=== PATIENT | male | born 1970 | race American Indian/Alaskan Native ===

== ENCOUNTER 2018-10-07 19:19 | Emergency (ER) | payer OTHER ==
--- NOTE | 2018-10-07 20:22 | Emergency Department Report ---
Blank Doc - Documentation Documentation: 48 y/o AAM with 2 week of intermittent gi bleed. No PMH.
[2018-10-07 20:56] LABS: Hematocrit 43.7 % (35.5-45.6); Hemoglobin 14.8 gm/dl (11.8-15.2); Mean Corpuscular HGB Conc 34 % (32-34); Mean Corpuscular Volume 82 fl (84-94); Platelet Count 224 K/mm3 (140-440); Red Blood Count 5.33 M/mm3 (3.65-5.03)
[2018-10-07 21:23] LABS: Alanine Aminotransferase 22 units/L (7-56); Albumin 3.9 g/dL (3.9-5); BUN/Creatinine Ratio 10; Blood Urea Nitrogen 9 mg/dL (9-20); Calcium 9.1 mg/dL (8.4-10.2); Hemolysis Index 11
[2018-10-07 22:07] LABS: RBC Morphology Normal; Total Cells Counted 100
[2018-10-07 23:54] VITALS: BP 146/95
--- NOTE | 2018-10-08 02:22 | Emergency Department Report ---
ED General Adult HPI - General Chief complaint: GI Bleed Stated complaint: BLOOD IN STOOL Time Seen by Provider: 10/08/18 00:37 Source: patient Mode of arrival: Ambulatory Limitations: No Limitations - History of Present Illness Initial comments: Pt is a 48 yo male who presents to the ED with c/o intermittent rectal bleeding that began two weeks ago. He states he has bright red blood when he wipes and some present in the toliet. He denies any melena or abd pain. The patient states he does strain to have a BM and sits on the toliet for about 30 minutes. He denies every having this previously. He has not tried any treatment. He states he last had a BM today. He has no PMHx and is not on any medications. He does smoke and drink. He has never had a colonoscopy or seen a GI doctor. He states his grandmother and grandfather had colon CA. Severity scale (0 -10): 2 - Related Data Previous Rx's Medication Instructions Recorded Last Taken Type Docusate Sodium [Colace] 100 mg PO BID #20 capsule 10/08/18 Unknown Rx Nitroglycerin [Rectiv] 0.5 gm RC BID #30 oint...g. 10/08/18 Unknown Rx Allergies Allergy/AdvReac Type Severity Reaction Status Date / Time No Known Allergies Allergy Unverified 10/07/18 19:24 ED Review of Systems ROS: Stated complaint: BLOOD IN STOOL Other details as noted in HPI Comment: All other systems reviewed and negative ED Past Medical Hx - Past Medical History Previous Medical History?: Yes Additional medical history: hemorrhoids - Surgical History Past Surgical History?: No - Social History Smoking Status: Never Smoker Substance Use Type: None - Medications Home Medications: Home Medications Medication Instructions Recorded Confirmed Last Taken Type Docusate Sodium [Colace] 100 mg PO BID #20 capsule 10/08/18 Unknown Rx Nitroglycerin [Rectiv] 0.5 gm RC BID #30 oint...g. 10/08/18 Unknown Rx ED Physical Exam - General Limitations: No Limitations General appearance: alert, in no apparent distress - Head Head exam: Present: atraumatic, normocephalic - Eye Eye exam: Present: normal appearance - ENT ENT exam: Present: mucous membranes moist - Respiratory Respiratory exam: Present: normal lung sounds bilaterally. Absent: respiratory distress, wheezes, rales, rhonchi, stridor, chest wall tenderness, accessory muscle use, decreased breath sounds, prolonged expiratory - Cardiovascular Cardiovascular Exam: Present: regular rate, normal rhythm, normal heart sounds. Absent: systolic murmur, diastolic murmur, rubs, gallop - GI/Abdominal GI/Abdominal exam: Present: soft, normal bowel sounds. Absent: distended, tenderness, guarding, rebound, rigid - Rectal Rectal exam: Present: normal rectal tone, heme (-) stool, other (Hieu RN present during examination, small anal fissure at the 12 oclock position, no external or internal hemorrhoids, brown stool on examination, no prostate hypertrophy) - Neurological Exam Neurological exam: Present: alert, oriented X3 - Psychiatric Psychiatric exam: Present: normal affect, normal mood - Skin Skin exam: Present: warm, dry, intact ED Course Vital Signs 10/07/18 10/07/18 10/07/18 19:27 20:16 23:51 Temperature 98.2 F 98.2 F 98.3 F Pulse Rate 76 79 65 Respiratory 18 18 16 Rate Blood Pressure 140/95 140/95 146/95 O2 Sat by Pulse 98 98 99 Oximetry ED Medical Decision Making - Lab Data Result diagrams: 10/07/18 20:24 10/07/18 20:24 - Medical Decision Making Pt is a 48 yo male who presents to the ED with c/o intermittent rectal bleeding that began two weeks ago. He states he has bright red blood when he wipes and some present in the toliet. He denies any melena or abd pain. The patient states he does strain to have a BM and sits on the toliet for about 30 minutes. He de nies every having this previously. He has not tried any treatment. He states he last had a BM today. He has no PMHx and is not on any medications. He does smoke and drink. He has never had a colonoscopy or seen a GI doctor. He states his grandmother and grandfather had colon CA. labs are WNL. VSS. Examination shows a small anal fissure at the 12 oclock position, no hemorrhoids. hemacult is negative. Will tx pt for anal fissure and give stool softener. Discussed increased water intake and fiber. WIll have pt see a GI doctor in the next 2-3 days given family hx and will most likely need a colonoscopy. Advised to also see PCP in the next 2-3 days. Return to the emergency room for any new or wor sening symptoms. Critical care attestation.: If time is entered above; I have spent that time in minutes in the direct care of this critically ill patient, excluding procedure time. ED Disposition Clinical Impression: Rectal bleed, Anal fissure Disposition: TO HOME OR SELFCARE Is pt being admited?: No Does the pt Need Aspirin: No Condition: Stable Instructions: Anal Fissure (ED), Rectal Bleeding (ED), High Fiber Diet (ED) Additional Instructions: Please follow up with [facility] in the next 2-3 days to discuss colonscopy. Please follow up with primary care doctor in the next 2-3 days. Use medication as prescribed. Return to the emergency room for any new or worsening symptoms. Prescriptions: Docusate Sodium [Colace] 100 mg PO BID #20 capsule Nitroglycerin [Rectiv] 0.5 gm RC BID #30 oint...g. Referrals: LUCIA ROBLEDO MD [Primary Care Provider] - 2-3 Days [facility] [Provider Group] - 2-3 Days Time of Disposition: 02:22 Print Language: CZECH
== END 2018-10-08 02:40 | disposition home or self-care (01) ==
LOC: ED 19:19
DX: K60.2 Anal fissure, unspecified (principal)
CPT/HCPCS: 36415; 80053; 85007; 85025

== ENCOUNTER 2020-10-28 20:09 | Emergency (ER) | payer OTHER ==
[2020-10-28 20:46] VITALS: BP 134/94
[2020-10-28 21:20] LABS: Basophils % (Auto) 0.8 % (0.0-1.8); Eosinophils # (Auto) 0.1 K/mm3 (0.0-0.4); Eosinophils % (Auto) 1.3 % (0.0-4.3); Hematocrit 45.8 % (35.5-45.6); Hemoglobin 15.6 gm/dl (11.8-15.2); Lymphocytes # (Auto) 2.9 K/mm3 (1.2-5.4); Lymphocytes % (Auto) 50.4 % (13.4-35.0); Mean Corpuscular HGB Conc 34 % (32-34); Mean Corpuscular Volume 82 fl (84-94); Monocytes # (Auto) 0.7 K/mm3 (0.0-0.8); Monocytes % (Auto) 11.6 % (0.0-7.3); Platelet Count 221 K/mm3 (140-440); Red Blood Count 5.58 M/mm3 (3.65-5.03); Red Cell Distribution Width 13.7 % (13.2-15.2)
[2020-10-28 21:42] LABS: Creatine Kinase MB 2.5 ng/mL (0.0-4.0)
[2020-10-28 21:44] LABS: Alanine Aminotransferase 28 units/L (7-56); Albumin 4.6 g/dL (3.9-5); BUN/Creatinine Ratio 14; Blood Urea Nitrogen 13 mg/dL (9-20); Calcium 9.4 mg/dL (8.4-10.2); Hemolysis Index 6
[2020-10-28] MEDS ORDERED: BUTALB/ACETAMINOPHEN/CAFFEINE TAB PO ONE (23:27)
[2020-10-28] MEDS ORDERED: MECLIZINE 25 MG TAB PO ONE (23:27)
[2020-10-28] MEDS ORDERED: SODIUM CHLORIDE 0.9% 1000 ML 1,000 ML IV ONE (23:28)
--- NOTE | 2020-10-28 23:55 | XRay Report ---
CHEST 1 VIEW 10/28/2020 11:46 PM INDICATION / CLINICAL INFORMATION: DIZZINESS. COMPARISON: None available. FINDINGS: SUPPORT DEVICES: None. HEART / MEDIASTINUM: The heart size and pulmonary vasculature are normal. The aorta is normal in juan a autumn. LUNGS / PLEURA: No significant pulmonary or pleural abnormality. No pneumothorax. ADDITIONAL FINDINGS: No significant additional findings. IMPRESSION: No acute findings. Signer Name: Thomas Hartley MD Signed: 10/28/2020 11:50 PM Workstation Name: [id number]
--- NOTE | 2020-10-29 00:36 | Cat Scan Report ---
CT HEAD WITHOUT CONTRAST INDICATION / CLINICAL INFORMATION: Patient complains of dizziness. TECHNIQUE: All CT scans at this location are performed using CT dose reduction for ALARA by means of automated exposure control. COMPARISON: None available. FINDINGS: HEMORRHAGE: None. EXTRA-AXIAL SPACES: Normal in size and morphology for the patient's age. VENTRICULAR SYSTEM: Normal in size and morphology for the patient's age. CEREBRAL PARENCHYMA: No significant abnormality. No acute territorial infarct. MIDLINE SHIFT / HERNIATION: None. CEREBELLUM / BRAINSTEM: No significant abnormality. ORBITS: Normal as visualized. SOFT TISSUES: No significant abnormality. SKULL: No significant abnormality. PARANASAL SINUSES / MASTOID AIR CELLS: Normal as visualized. ADDITIONAL FINDINGS: None. IMPRESSION: No acute intracranial abnormality. Signer Name: Thomas Hartley MD Signed: 10/29/2020 12:32 AM Workstation Name: [id number]
--- NOTE | 2020-10-29 02:12 | Emergency Department Report ---
ED Dizziness HPI - General Chief Complaint: Dizziness Stated Complaint: DIZZINESS/FAINTED Source: patient Mode of arrival: Ambulatory Limitations: No Limitations - History of Present Illness Initial Comments: Patient is a 50-year-old -Monegasque male with a history of asthma who presents to the ED with complaint of acute onset persistent intermittent headache and dizziness with lightheadedness for the last 2 days. Patient states that his symptoms have been intermittent and persistent since the onset and that in the last 12 hours the dizziness and the lightheadedness got worse and he decided come to the ED for evaluation. Patient denies syncope, chest pain, shortness of breath, cough, wheezing, fever, chills, nasal and sinus congestion, change in vision, neck pain, nosebleed, abdominal pain, traumatic injury or fall. MD Complaint: dizziness, lightheadedness, other (Headache) -: Sudden, days(s) (2) Timing: sudden onset, intermittent Description: sense of movement, "room spinning", lightheadedness, off-balance, near-syncope History of Same: No History of Trauma: No Severity: severe Improves With: nothing Worsens With: movement, position, exertion Associated Symptoms: denies other symptoms. denies: ataxia, chest pain, confusion, cough, diaphoresis, fever/chills, loss of appetite, malaise, rash, seizure, shortness of breath, syncope, weakness - Related Data Previous Rx's Medication Instructions Recorded Last Taken Type Docusate Sodium [Colace] 100 mg PO BID #20 capsule 10/08/18 Unknown Rx Nitroglycerin [Rectiv] 0.5 gm RC BID #30 oint...g. 10/08/18 Unknown Rx Butalb/Acetamin/Caff 50-325-40 1 tab PO Q6HR PRN #12 tab 10/29/20 Unknown Rx [Fioricet 50-325-40] Ibuprofen [Motrin] 800 mg PO Q8HR PRN #30 tablet 10/29/20 Unknown Rx Meclizine HCl 25 mg PO Q8H PRN #30 tablet 10/29/20 Unknown Rx Allergies Allergy/AdvReac Type Severity Reaction Status Date / Time No Known Allergies Allergy Unverified 10/07/18 19:24 ED Review of Systems ROS: Stated complaint: DIZZINESS/FAINTED Other details as noted in HPI Constitutional: malaise. denies: chills, fever Eyes: denies: eye pain, eye discharge, vision change ENT: denies: ear pain, throat pain Respiratory: denies: cough, shortness of breath, wheezing Cardiovascular: denies: chest pain, palpitations Endocrine: no symptoms reported Gastrointestinal: denies: abdominal pain, nausea, diarrhea Genitourinary: denies: urgency, dysuria Musculoskeletal: denies: back pain, joint swelling, arthralgia Skin: denies: rash, lesions Neurological: headache, vertigo, other (Lightheadedness). denies: weakness, paresthesias Psychiatric: denies: anxiety, depression Hematological/Lymphatic: denies: easy bleeding, easy bruising ED Past Medical Hx - Past Medical History Previous Medical History?: Yes Hx Asthma: Yes Additional medical history: hemorrhoids - Surgical History Past Surgical History?: No - Social History Smoking Status: Current Every Day Smoker Substance Use Type: Alcohol - Medications Home Medications: Home Medications Medication Instructions Recorded Confirmed Last Taken Type Docusate Sodium [Colace] 100 mg PO BID #20 capsule 10/08/18 Unknown Rx Nitroglycerin [Rectiv] 0.5 gm RC BID #30 oint...g. 10/08/18 Unknown Rx Butalb/Acetamin/Caff 50-325-40 1 tab PO Q6HR PRN #12 tab 10/29/20 Unknown Rx [Fioricet 50-325-40] Ibuprofen [Motrin] 800 mg PO Q8HR PRN #30 tablet 10/29/20 Unknown Rx Meclizine HCl 25 mg PO Q8H PRN #30 tablet 10/29/20 Unknown Rx ED Physical Exam - General Limitations: No Limitations General appearance: alert, in no apparent distress - Head Head exam: Present: atraumatic, normocephalic, normal inspection - Eye Eye exam: Present: normal appearance, PERRL, EOMI Pupils: Present: normal accommodation - ENT ENT exam: Present: normal exam, normal orophraynx, mucous membranes moist, TM's normal bilaterally, normal external ear exam - Neck Neck exam: Present: normal inspection, full ROM - Respiratory Respiratory exam: Present: normal lung sounds bilaterally. Absent: respiratory distress, wheezes, rales, rhonchi, chest wall tenderness, accessory muscle use, decreased breath sounds, prolonged expiratory - Cardiovascular Cardiovascular Exam: Present: regular rate, normal rhythm, normal heart sounds. Absent: systolic murmur, diastolic murmur, rubs, gallop - GI/Abdominal GI/Abdominal exam: Present: soft, normal bowel sounds. Absent: tenderness, guarding, rebound, hyperactive bowel sounds, hypoactive bowel sounds, organomegaly - Extremities Exam Extremities exam: Present: normal inspection, full ROM, normal capillary refill - Back Exam Back exam: Present: normal inspection, full ROM. Absent: tenderness, CVA tenderness (R), CVA tenderness (L), muscle spasm, paraspinal tenderness - Neurological Exam Neurological exam: Present: alert, oriented X3, CN II-XII intact, normal gait, reflexes normal - Psychiatric Psychiatric exam: Present: normal affect, normal mood - Skin Skin exam: Present: warm, dry, intact, normal color. Absent: rash ED Course Vital Signs 10/28/20 20:43 Temperature 98.8 F Pulse Rate 70 Respiratory 20 Rate Blood Pressure 134/94 O2 Sat by Pulse 96 Oximetry ED Medical Decision Making - Lab Data Result diagrams: 10/28/20 20:51 10/28/20 20:51 - Radiology Data Radiology results: report reviewed, image reviewed [facility] [address] [place] [address] XRay Report Signed Patient: AMADOU VU MR# : [id number] : 1970 Acct:[id number] Age/Sex: 50 / M ADM Date: 10/28/20 Loc: ED Attending Dr: Ordering Physician: HALLIE DEVRIES Date of Service: 10/28/20 Procedure(s): XR chest 1V ap Accession Number(s): [id number] cc: HALLIE DEVRIES Fluoro Time In Minutes: CHEST 1 VIEW 10/28/2020 11:46 PM INDICATION / CLINICAL INFORMATION: DIZZINESS. COMPARISON: None available. FINDINGS: SUPPORT DEVICES: None. HEART / MEDIASTINUM: The heart size and pulmonary vasculature are normal. The aorta is normal in caliber. LUNGS / PLEURA: No significant pulmonary or pleural abnormality. No pneumothorax. ADDITIONAL FINDINGS: No significant additional findings. IMPRESSION: No acute findings. Signer Name: Thomas Hartley MD Signed: 10/28/2020 11:50 PM Workstation Name: [email or web address] Transcribed By: RT Dictated By: Thomas Hartley MD Electronically Authenticated By: Thomas Hartley MD Signed Date/Time: 10/28/202349 DD/ 49 TD/TT: Print Cancel [facility] [address] [place] [address] Cat Scan Report Signed Patient: AMADOU VU MR# : [id number] : 1970 Acct:[id number] Age/Sex: 50 / M ADM Date: 10/28/20 Loc: ED Attending Dr: Ordering Physician: HALLIE DEVRIES Date of Service: 10/28/20 Procedure(s): CT head/brain wo con Accession Number(s): [id number] cc: HALLIE DEVRIES CT HEAD WITHOUT CONTRAST INDICATION / CLINICAL INFORMATION: Patient complains of dizziness. TECHNIQUE: All CT scans at this location are performed using CT dose reduction for ALARA by means of automated exposure control. COMPARISON: None available. FINDINGS: HEMORRHAGE: None. EXTRA-AXIAL SPACES: Normal in size and morphology for the patient's age. VENTRICULAR SYSTEM: Normal in size and morphology for the patient's age. CEREBRAL PARENCHYMA: No significant abnormality. No acute territorial infarct. MIDLINE SHIFT / HERNIATION: None. CEREBELLUM / BRAINSTEM: No significant abnormality. ORBITS: Normal as visualized. SOFT TISSUES: No significant abnormality. SKULL: No significant abnormality. PARANASAL SINUSES / MASTOID AIR CELLS: Normal as visualized. ADDITIONAL FINDINGS: None. IMPRESSION: No acute intracranial abnormality. Signer Name: Thomas Hartley MD Signed: 10/29/2020 12:32 AM Workstation Name: [email or web address] Transcribed By: RT Dictated By: Thomas Hartley MD Electronically Authenticated By: Thomas Hartley MD Signed Date/Time: 10/29/2031 DD/ TD/TT: - Medical Decision Making This is a 50-year-old -Monegas[place] male with a history of asthma who presents to the ED with complaint of acute onset persistent intermittent headache and dizziness with lightheadedness for the last 2 days. Patient states that his symptoms have been intermittent and persistent since the onset and that in the last 12 hours the dizziness and the lightheadedness got worse and he decided come to the ED for evaluation. In the ED, patient is alert and oriented x3 and is not in any distress. Lab test results were reviewed and are all nonactionable including troponin levels. The CK level is however elevated to 233. Chest x-ray showed no acute cardiopulmonary abnormalities or pneumonitis. Head CT scan without contrast showed no acute intracranial abnormalities or hemorrhage. Patient was treated in the ED with normal saline 1 L IV bolus x1, also treated for headache and dizziness. On reevaluation, patient's symptoms have resolved and patient felt better. Patient vital signs are stable. Patient was discharged home on medications and advised to follow-up with his primary care physician in 3 to 5 days for reevaluation or return to the ED immediately if symptoms get worse. - Differential Diagnosis Lightheadedness; Dizziness; dehydration; ACS; Sinusitis Critical care attestation.: If time is entered above; I have spent that time in minutes in the direct care of this critically ill patient, excluding procedure time. ED Disposition Clinical Impression: Dizziness, nonspecific Acute nonintractable headache Qualifiers: Headache type: tension-type Qualified Code(s): G44.209 - Tension-type headache, unspecified, not intractable Disposition: DC-01 TO HOME OR SELFCARE Is pt being admited?: No Does the pt Need Aspirin: No Condition: Stable Instructions: General Headache Without Cause, Tension Headache, Adult, [id number], Dizziness, [id number] Additional Instructions: All lab test results were reviewed and are all nonactionable except for mildly elevated CK levels which was elevated to 233. Chest x-ray showed no acute cardiopulmonary abnormalities or pneumonitis. Head CT scan without contrast showed no acute intracranial abnormalities or hemorrhage. Therefore take medications as advised, drink plenty of fluids and follow-up with your primary care physician in 5 to 7 days for reevaluation. Return to the ED immediately if symptoms get worse. Prescriptions: Butalb/Acetamin/Caff 50-325-40 [Fioricet 50-325-40] 1 tab PO Q6HR PRN #12 tab PRN Reason: Headache Meclizine HCl 25 mg PO Q8H PRN #30 tablet PRN Reason: Dizziness Ibuprofen [Motrin] 800 mg PO Q8HR PRN #30 tablet PRN Reason: Headache Referrals: [facility] [Provider Group] - 3-5 Days Time of Disposition: 02:10 Print Language: GEORGIAN
== END 2020-10-29 02:40 | disposition home or self-care (01) ==
LOC: ED 20:09
DX: R42 Dizziness and giddiness (principal); R51.9 Headache, unspecified; J45.909 Unspecified asthma, uncomplicated; F17.200 Nicotine dependence, unspecified, uncomplicated; Z79.1 Long term (current) use of non-steroidal anti-inflammatories (NSAID); Z79.899 Other long term (current) drug therapy
CPT/HCPCS: 36415; 70450; 71045; 80053; 82550; 82553; 84484; 85025; 96360; 99284; J7030